=== PATIENT | male | born 1990 | race Asian ===

== ENCOUNTER → 2019-02-04 | Outpatient (CLI) | payer OTHER ==
--- NOTE | 2019-02-04 14:17 | Diagnostic Imaging Report ---
INDICATION: History of tuberculosis, now with left-sided chest pain. TIME OF EXAM: 01:39 p.m. COMPARISON: No prior studies are available for comparison. FINDINGS: Two views of the chest were obtained. Heart size is normal. There is a density identified in the right lung base, only seen on the frontal view. An area of infiltrate cannot be entirely excluded. The remainder of the lung matias is clear. The pulmonary vascularity is normal. No effusion or pneumothorax is detected. IMPRESSION: Right basilar parenchymal density, best seen on the frontal view. This could represent an area of infiltrate. Follow-up after course of therapy is recommended to confirm clearing. Dictated by: Dictated on workstation # [id number]
== END ==
LOC: EDBD 13:17 → RAD 13:17
PROVIDERS: ATTEND Internal Medicine
DX: A15.9 Respiratory tuberculosis unspecified (principal); J98.4 Other disorders of lung; Z86.11 Personal history of tuberculosis
CPT/HCPCS: 71046

== ENCOUNTER → 2019-02-08 | Outpatient (CLI) | payer OTHER ==
[~2019-02-08] MED LIST: CATHETER FLUSH 10 ML SYR IV PRN; HOLD METFORMIN - RECEIVED CONTRAST 20 ML VIAL IV SCH; IOHEXOL 350 MG/ML 100 ML (OMNIPAQUE 350) VIAL IV ONE; NS 100 ML (IVPB) BAG IV ONE
--- NOTE | 2019-02-08 15:18 | Diagnostic Imaging Report ---
EXAMINATION: CT Chest with intravenous contrast. TECHNIQUE: Multiple contiguous axial images were obtained through the chest after the uneventful administration of intravenous contrast. All CT scans use one or more of the following dose optimizing techniques: automated exposure control, MA and/or KvP adjustment based on a patient size and exam type, or iterative reconstruction. HISTORY: Tuberculosis. COMPARISON: None available. FINDINGS: There is a very small area of consolidation in the anterior basilar segment of the right lower lobe. Lungs are otherwise clear without edema. No pleural effusion. No pneumothorax. No other nodules are seen. No pleural effusion or pneumothorax. No suspicious nodules. Heart size is normal. No pericardial effusion. Aorta is normal in caliber. There is no axillary or supraclavicular lymphadenopathy. There is no mediastinal lymphadenopathy. Limited views of the upper abdomen are unremarkable. There are no suspicious osseus lesions. IMPRESSION: 1. Very small area of consolidation in the anterior basilar segment of the right lower lobe. This may represent a small focus of infection or pneumonitis. Appearance is somewhat unusual for active tuberculosis. Dictated by: Dictated on workstation # [id number]
== END ==
LOC: RAD 14:41
PROVIDERS: ATTEND Internal Medicine
DX: A15.9 Respiratory tuberculosis unspecified (principal); J18.1 Lobar pneumonia, unspecified organism
CPT/HCPCS: 71260

== ENCOUNTER → 2020-12-22 | Outpatient (CLI) | payer OTHER ==
--- NOTE | 2020-12-22 13:30 | Diagnostic Imaging Report ---
INDICATION: Pain in the right hand and wrist status post traumatic injury. COMPARISON: None. FINDINGS: 3 views of the right hand were obtained. There is subtle longitudinally oriented lucency involving the distal radius. There is no associated cortical disruption however. No other acute osseous abnormality of the right hand is seen. Joint spaces are preserved. No unexpected radiopaque foreign bodies are identified. IMPRESSION: 1. Subtle linear lucency of the distal radius, without appreciable cortical disruption. Findings could be on the basis of acute fracture. Correlation with point tenderness is recommended. If further imaging evaluation is indicated, CT is advised. Dictated by: Dictated on workstation # [id number]
--- NOTE | 2020-12-22 13:51 | Diagnostic Imaging Report ---
EXAMINATION: Right wrist at 1:26 PM. INDICATION: Injury with wrist pain. TECHNIQUE/COMPARISON: Three views were obtained. There are no prior studies available for comparison. FINDINGS: On the AP view, there is a linear lucency extending longitudinally through the midportion of the distal radial metaphysis. This finding is not as well visualized on the other two projections and could be secondary to superimposition. Even so, I am concerned that there is a nondisplaced fracture in this area. If further imaging is desired, then CT would be recommended. The radiocarpal joint is well maintained. The soft tissues are unremarkable. IMPRESSION: 1. There is question of a longitudinally oriented nondisplaced fracture involving the distal radial metaphysis. Recommendations as above. 2. There is no acute bony abnormality noted otherwise. Dictated by: Dictated on workstation # [id number]
== END ==
LOC: RAD 12:47
PROVIDERS: ATTEND Nurse Practitioner Family
DX: S69.91XA Unspecified injury of right wrist, hand and finger(s), initial encounter (principal); X58.XXXA Exposure to other specified factors, initial encounter
CPT/HCPCS: 73110; 73130